=== PATIENT | male | born 1985 | race Caucasian/White ===

== ENCOUNTER 2024-06-23 05:39 | Emergency (ER) | payer BC, MEDICARE, SELFPAY ==
[2024-06-23 05:41] VITALS: BP 154/98
[2024-06-23 06:03] VITALS: BMI 40.6
--- NOTE | 2024-06-23 07:34 | ED.GENMED ---
History of Present Illness
General
Chief Complaint: Skin Problem
Source: patient and family
Exam Limitations: developmental stage
Time Seen by Provider: 06/23/24 07:03
Nursing documentation reviewed up to this point in time: agreed with
History of Present Illness
History of Present Illness:
39-year-old male with a history of autism presents with a abscess on his right medial buttocks that started 2 days ago after family says that he said he was having pain when he sat. It started draining last night without any assistance. It has
been draining a little bit of blood. He has never had an abscess before. There is been no fevers or chills, nausea or vomiting, rectal pain, scrotal pain.
He has not taken anything for pain
Parents are here with him
Past History
Past History
ED Past Medical History: Other (Autism)
Social History
Tobacco: Non-smoker
Alcohol: None
Drug: None
Personal: Single
Review of Systems
Review of Systems
Allergies reviewed?: Yes
All Other Systems: Not applicable
Phy Exam
Physical Exam
Physical Exam:
GENERAL: Alert , in no apparent distress resting, easily arousable communicative
CARDIAC: Regular rate and rhythm .
LUNGS: Clear breath sounds bilaterally, no acute respiratory distress, no wheezes/rales/rhonchi
ABDOMEN: Soft, without focal tenderness, no r/g, no cvat, normal bowel sounds
Rectum and anus no tenderness, no tracking of any abscess, in the perineum area on the right side there is a small puncture hole draining a little bit of blood with expression, there is a half a centimeter surrounding area of induration but minimal
tenderness, no streaking erythema into his scrotum, does not appear like a Christina's, there is a skin tag on his left medial thigh which is nontender
NEUROLOGICAL: Alert and oriented, no focal neuro deficits
SKIN: Warm and dry, small puncture draining blood along the hair follicle, likely a folliculitis/abscess that drained
PSYCH: Normal and appropriate interaction.
Course
Orders/Labs/Results
Orders:
Orders
06/23/24 07:41
Sulfamethox./Trimethoprim Ds [Bactrim Ds 800 mg/160 mg] 1 tablet PO NOW STA
Vital Signs
Initial and Last Documented VS:
Initial Vital Signs
Temp Pulse Resp BP
36.2 C 110 22 154/98
06/23/24 05:41 06/23/24 05:41 06/23/24 05:41 06/23/24 05:41
Last Documented Vital Signs
Temp Pulse Resp BP
36.7 C 95 16 139/78
06/23/24 07:37 06/23/24 07:37 06/23/24 07:37 06/23/24 07:37
MDM/Problems Addressed
Differential Diagnosis Includes:
Abscess, folliculitis,
MDM/Problems Addressed:
39-year-old autistic male presents for what looks like an abscess that opened up spontaneously, it is located very medially inferiorly on the right buttock near his perineum but not including, there is no erythema, no surrounding induration, it is
minimally tender, there is no tracking to the rectum or into the scrotum. Since is already opened and a very small area I did not feel that I&D was indicated. Recommend warm compresses or warm sitz bath's and antibiotics
*Critical Care Note
Total Time (30-74mins, 75-104mins- exclusive of procedures): Not Applicable
ED Attending Note
-
Portions of this chart may have been created with voice recognition software.� Occasional wrong word or��sound alike� substitutions may have occurred due to the inherent limitations of voice recognition software.
Discharge Plan
Departure
Patient Disposition: Home (Routine Discharge)
Date of Disposition: 06/23/24
Time of Disposition: 07:38
Patient with high blood pressure during this ER visit?: No
Condition: Fair
Covid-19: Not Applicable
Discharge Problem:
Abscess of buttock
Instructions: Skin Abscess
Prescriptions:
New
sulfamethoxazole-trimethoprim [Bactrim DS] 800-160 mg tablet
1 tab PO BID Qty: 14 0RF
Referrals:
Toño Clark DO [Family Provider] - Follow up in 2-3 days
Activity Restrictions/Additional Instructions:
ALMA LIKELY HAD A SMALL ABSCESS (INFECTOIN) IN THE SKIN AROUND A HAIR FOLLICLE THAT OPENED UP
WARM SOAKS 10 MINUTES SEVERAL TIMES A DAY UNTIL HEALED
BACTRIM TWICE A DAY FOR 7 DAYS
WATCH FOR WORSENING REDNESS/SWELLING/TENDERNESS, REDNESS INTO THE SCROTUM OR RECTUM OR ANY CONCERNS, FEVER, ETC
OTHERWISE IT SHOULD CLOSE UP ON ITS OWN
Interventions
Interventions:
*Risk Screen - Suicide Last Done: 06/23/24 06:04
*Neglect/Abuse Screening Last Done: 06/23/24 06:04
*ED- Fall Risk Assessment Last Done: 06/23/24 06:04
*ED COVID-19 Vaccine History Last Done: 06/23/24 06:04
*Nursing Disposition Last Done: 06/23/24 07:47
ED-Skin Assessment Last Done: 06/23/24 07:05
Discharge Date and Time
Discharge Date/Time: 06/23/24 07:48
Print Language: GEORGIAN
[2024-06-23 07:37] VITALS: BP 139/78
[2024-06-23] MEDS: BACTRIM DS 800 MG/160 MG 1 TABLET PO (07:44)
== END 2024-06-23 07:48 | disposition home or self-care (01) ==
LOC: EMR 05:39
PROVIDERS: EMERGENCY PHYSICIAN Emergency Medicine; FAMILY PHYSICIAN Family Medicine
DX: L02.31 Cutaneous abscess of buttock (principal); F84.0 Autistic disorder
CPT/HCPCS: 99283

== ENCOUNTER 2024-10-13 13:35 | Emergency (ER) | payer MEDICARE, OTHER, SELFPAY ==
[2024-10-13 13:37] VITALS: BP 134/79
[2024-10-13 14:11] LABS: Hematocrit 46.2 % (39.0-52.0); Hemoglobin 16.1 g/dL (13.0-18.0); Mean Corp Hgb Conc. 34.8 g/dL (33.0-37.0); Mean Corpuscular Volume 76.9 fL (80.0-94.0); Nucleated Red Blood Cells % 0 % (-); Platelet Count 324 10^3/uL (130-400); Red Cell Dist. Width 13.6 % (11.5-14.5)
[2024-10-13 14:26] LABS: ALT (SGPT) 27 U/L (0-50); AST (SGOT) 26 U/L (17-59); Albumin 4.9 g/dl (3.5-5.0); Alkaline Phosphatase 72 U/L (38-126); Blood Urea Nitrogen 11 mg/dl (9-20); Calcium 10.1 mg/dl (8.4-10.2); Carbon Dioxide 16 mmol/L (22-30); Chloride 112 mmol/L (98-107); Glucose 113 mg/dl (70-99); Lipase 35 U/L (23-300); Potassium 4.0 mmol/L (3.5-5.1); Sodium 140 mmol/L (135-145); Total Protein 8.3 g/dl (6.3-8.2); eGFR > 60.00
--- NOTE | 2024-10-13 18:05 | ED.GENMED ---
History of Present Illness
General
Chief Complaint: Abdominal Pain
Source: patient
Exam Limitations: none
Time Seen by Provider: 10/13/24 17:27
Nursing documentation reviewed up to this point in time: agreed with
History of Present Illness
History of Present Illness:
39-year-old male with history of autism, ADHD presents for generalized abdominal pain and nonbloody diarrhea gradually worsening over the past 6 days. No recent travel, no known sick contacts. Patient denies fever, denies nausea or vomiting. No
recent antibiotic use.
The patient reports frequent bathroom visits, estimating about 20 episodes during the night. He experiences crampy abdominal pain that varies in intensity and frequency, described as occurring anywhere from every three minutes to every ten minutes.
The most recent episode of diarrhea occurred approximately one hour prior to the visit.
The patient described his pain currently as moderately severe, rating it a five out of ten at the time of examination.
He took Loperamide (Imodium) yesterday, with one dose taken in the morning and another in the evening, but did not specify major relief from this medication.
Past History
Past History
ED Past Medical History: Other (Autism, ADHD)
ED Past Surgical History: Orthopedic and Tonsilectomy
Social History
Tobacco: Non-smoker
Alcohol: Occasional
Drug: None
Personal: Single
Living: with family
Employment: Not employed
Review of Systems
Review of Systems
Allergies reviewed?: Yes
All Other Systems: ROS reviewed and negative except as documented in HPI and ROS
Constitutional: Denies fever
ABD/GI: Reports abdominal pain and diarrhea; Denies nausea, vomiting, bloody stools or black stools
Phy Exam
Physical Exam
Physical Exam:
GENERAL: No acute distress. A&Ox3.
CONSTITUTIONAL: Afebrile.
EYES: clear, conjunctivae normal
ENMT: moist mucus membranes, Pharynx nl
RESPIRATORY: Regular respirations, nonlabored, lungs clear.
CARDIOVASCULAR: Regular rate and rhythm, no murmurs, no rubs.
GI: Soft, obese, generally tender, hyperactive bowel sounds no guarding,
MUSCULOSKELETAL: Moves with ease. Well perfused.
SKIN: Warm, dry, pink
PSYCH: Normal mood and affect. Well kept, interactive and appropriate
NEUROLOGIC: Awake, alert and oriented. No focal neurological deficits
Course
Orders/Labs/Results
Orders:
Orders
10/13/24 13:40
Electrocardiogram (*1) Urgent
Reason for Study: Abdominal Pain
EKG- Treatment ONCE
10/13/24 14:06
Complete Blood Count/With Diff Urgent
Comprehensive Metabolic Panel Urgent
Lipase Urgent
10/13/24 18:04
CT Abd/Pel (IV only)-DH only Urgent
Comment:
Reason For Exam: generalized pain x 6 days, diarrhea
10/13/24 18:42
C DIFF [C difficile Antigen & Toxins] Urgent
NARAYAN Source: Feces/Stool
Specimen Description:
Date Specimen was Collected: 10/13/24
Time Specimen was Collected: 18:28
Stool Culture Urgent
NARAYAN Source: Feces/Stool
Specimen Description:
Date Specimen was Collected: 10/13/24
Time Specimen was Collected: 18:28
Abnormal Lab Results
10/13/24
14:06
WBC 11.7 H 10^3/uL
(4.8-10.8)
MCV 76.9 L fL
(80.0-94.0)
MCH 26.8 L pg
(27.0-31.0)
Abs Immat Gran (auto) 0.1 H 10^3/uL
(0-0.05)
Absolute Neuts (auto) 8.0 H 10^3/uL
(1.4-6.5)
Absolute Monos (auto) 1.5 H 10^3/uL
(0.1-0.6)
Lymphocytes % 16.6 L %
(20.5-51.1)
Monocytes % 12.7 H %
(1.7-9.3)
Chloride 112 H mmol/L
(98-107)
Carbon Dioxide 16 L mmol/L
(22-30)
Glucose 113 H mg/dl
(70-99)
Total Bilirubin 1.8 H mg/dl
(0.2-1.3)
Total Protein 8.3 H g/dl
(6.3-8.2)
10/13/24 14:06
10/13/24 14:06
Vital Signs
Initial and Last Documented VS:
Initial Vital Signs
Temp Pulse Resp BP Pulse Ox
98.2 F 133 16 134/79 98
10/13/24 13:37 10/13/24 13:37 10/13/24 13:37 10/13/24 13:37 10/13/24 13:37
Last Documented Vital Signs
Temp Pulse Resp BP Pulse Ox
98.2 F 118 18 134/79 99
10/13/24 13:37 10/13/24 16:12 10/13/24 16:12 10/13/24 13:37 10/13/24 18:11
MDM/Problems Addressed
Differential Diagnosis Includes:
Infectious versus viral gastroenteritis. IBS, colitis, diverticulitis
MDM/Problems Addressed:
39-year-old male with history of autism, ADHD presents for generalized abdominal pain and nonbloody diarrhea gradually worsening over the past 6 days. No recent travel, no known sick contacts. Patient denies fever, denies nausea or vomiting. No
recent antibiotic use.
The patient reports frequent bathroom visits, estimating about 20 episodes during the night. He experiences crampy abdominal pain that varies in intensity and frequency, described as occurring anywhere from every three minutes to every ten minutes.
The most recent episode of diarrhea occurred approximately one hour prior to the visit.
The patient described his pain currently as moderately severe, rating it a five out of ten at the time of examination.
He took Loperamide (Imodium) yesterday, with one dose taken in the morning and another in the evening, but did not specify major relief from this medication.
febrile, NAD
Plan:
- Obtain a stool sample for analysis.
- Administer intravenous fluids for dehydration.
- Perform a Computed Tomography (CT) scan of the abdomen to further evaluate the cause of abdominal pain and diarrhea.
CBC: No clinically significant abnormality
CMP: No clinically significant abnormality
8:30 PM: Patient is awaiting CAT scan abdomen
And pelvis with IV only contrast, the CAT scan is significantly backed up
Patient and family informed of the backup of CAT scan 15 pts waiting, not sure how long it will be, he has no infectious symptoms, no bloody diarrhea, he states his pain 'is not that bad' at this point patient does not want to wait, he states he
will come back tomorrow morning
Stools testing will not be done until tomorrow
He is stable for discharge.
*Pulse Oximetry
SaO2: 99
Oxygen Mode of Delivery: Room air
ED Attending Note
-
Portions of this chart may have been created with voice recognition software.� Occasional wrong word or��sound alike� substitutions may have occurred due to the inherent limitations of voice recognition software.
Discharge Plan
Departure
Prescriptions:
No Action
sulfamethoxazole-trimethoprim [Bactrim DS] 800-160 mg tablet
1 tab PO BID Qty: 14 0RF
Referrals:
Toño Clark DO [Family Provider, Family Practice]
Interventions
Interventions:
*Risk Screen - Suicide Last Done: 10/13/24 13:37
*Neglect/Abuse Screening Last Done: 10/13/24 13:37
Discharge Date and Time
Print Language: CAPE VERDE[place]
[2024-10-13 20:57] VITALS: BP 132/95
== END 2024-10-13 20:58 | disposition home or self-care (01) ==
LOC: EMR 13:35
PROVIDERS: EMERGENCY PHYSICIAN Emergency Medicine; FAMILY PHYSICIAN Family Medicine
DX: R19.7 Diarrhea, unspecified (principal); R10.9 Unspecified abdominal pain; F84.0 Autistic disorder; F90.9 Attention-deficit hyperactivity disorder, unspecified type
CPT/HCPCS: 99283; 80053; 83690; 85025; 87045; 87046; 87324; 87427; 87449; 93005